=== PATIENT | female | born 1995 | race Caucasian/White ===

== ENCOUNTER → 2017-09-18 | Outpatient (CLI) | payer BC ==
[~2017-09-18] MED LIST: ATOM60CA4 PO; AZIT-1 PO; CEPH500C24 PO; CODE118S5 PO; CYCL10TA29 PO; ESTR0.5T16 PO; IBUP800T37 PO; OXYC-865 PO
[2017-09-18 13:14] LABS: PLATELET COUNT, AUTOMATED 246 K/uL (150-450)
--- NOTE | 2017-09-18 14:49 | EKG ---
FACILITY: [facility] [place] PATIENT NAME: DANIELA COSTA : [id number] MR: [id number] V: [id number] EXAM DATE: ORDERING PHYSICIAN: CASA WYMAN TECHNOLOGIST: YOKO Proctor Reason : PALPITATIONS Blood Pressure : / mmHG Vent. Rate : 073 BPM Atrial Rate : 073 BPM P-R Int : 134 ms QRS Dur : 078 ms QT Int : 368 ms P-R-T Axes : 010 071 033 degrees QTc Int : 405 ms Sinus arrhythmia No acute appearing findings No previous ECGs available Confirmed by JENNA HERNANDEZ ([id number]) on 09/19/2017 3:42:28 PM Referred By: GARO Confirmed By:JENNA HERNANDEZ
== END ==
LOC: RESP 12:55
PROVIDERS: ATTEND Nurse Practitioner Family
DX: R00.2 Palpitations (principal)
CPT/HCPCS: 36415; 82040; 82247; 82310; 82374; 82435; 82565; 82947; 84075; 84132; 84155; 84295; 84443; 84450; 84460; 84520; 85025; 93005; 93225

== ENCOUNTER → 2017-10-03 | Outpatient (CLI) | payer BC | LOC: LAB 10:10 | PROVIDERS: ATTEND Nurse Practitioner Family | DX: R94.6 Abnormal results of thyroid function studies (principal); R00.2 Palpitations | CPT/HCPCS: 36415; 84439; 84443; 84481 ==

== ENCOUNTER 2018-10-20 10:13 | Emergency (ER) | payer BC ==
[2018-10-20] MEDS ORDERED: NS(*) 0.9% 1000 ML BAG 1,000 ML IV ONE (10:25)
[2018-10-20] MEDS ORDERED: ONDANSETRON 4 MG/2 ML VIAL IVP ONE (10:25)
--- NOTE | 2018-10-20 10:25 | ER Report ---
History and Physical Time Seen By MD: 10:25 Hx. of Stated Complaint: binge drinking last night, cant keep fluid down, vomiting, chest pain, sore throat, headache, does not remember last night HPI/ROS CHIEF COMPLAINT: Vomiting HISTORY OF PRESENT ILLNESS: Patient is a 23-year-old female who was out drinking last evening. She states that he drank several shots of vodka. She has a period where she blacked out last evening. She denies any recollection of the head injury. She's been complaining of sore throat along with multiple episodes of vomiting and is feeling rundown since. He denies any significant past medical h istory. She denies or REVIEW OF SYSTEMS: Constitutional: No fever, no chills. Eyes: No discharge. ENT: No sore throat. Cardiovascular: No chest pain, no palpitations. Respiratory: No cough, no shortness of breath. Gastrointestinal: Epigastric abdominal pain nausea and vomiting Genitourinary: No hematuria. Musculoskeletal: No back pain. Skin: No rashes. Neurological: No headache. Allergies: Coded Allergies: Sulfa (Sulfonamide Antibiotics) (Verified Allergy, Intermediate, swelling to face eye gtts, 05/24/16) Home Meds Active Scripts Ondansetron Hcl (ZOFRAN) 4 Mg Tablet, 4 MG PO Q8H for Nausea, #15 TAB 0 Refills Prov:SERINA GIBSON MD 10/20/18 Amoxicillin 500 Mg Tab (AMOXICILLIN 500 MG TAB) 500 Mg Tablet, 2 TAB PO Q12H, #40 TAB 0 Refills TAKE TWO TABLETS BY MOUTH EVERY 12 HOURS Prov:SERINA GIBSON MD 10/20/18 Reported Medications Atomoxetine Hcl (STRATTERA) 60 Mg Capsule, 1 TAB PO DAILY, #30 07/05/16 Discontinued Reported Medications Estradiol (ESTRADIOL) 0.5 Mg Tablet, 1 TAB PO DAILY, #30 07/05/16 Discontinued Scripts Cephalexin Monohydrate (CEPHALEXIN) 500 Mg Cap, 500 MG PO Q6H for infection, #20 CAP TAKE 1 CAPSULE BY MOUTH tid Prov:ALINA GARCIA DO 02/25/17 Oxycodone Hcl/Acetaminophen (PERCOCET 5-325 MG TABLET) 1 Each Tablet, 1 EACH PO Q4-6H PRN for PAIN, #12 Prov:ALINA GARCIA DO 02/25/17 Azithromycin (ZITHROMAX) 250 Mg Tablet, 1 TAB PO QDAY, #6 TAB 500mg(2tabs) today then one pill once a day for 4 more days. Prov:SOURAV THOMPSON V DO 07/05/16 Codeine/Promethazine Hcl (PROMETHAZINE-CODEINE SYRUP) 5 Ml Syrup, 10 ML PO Q6-8H PRN for COUGH, #120 ML Prov:SOURAV THOMPSON V DO 07/05/16 Past Medical/Surgical History Noncontributory towards chief complaint Smoking Status: Never Smoker Hx Substance Use Disorder: No Hx Alcohol Use: Yes (almost weekly (socially in college)) Constitutional Vital Sign - Last 24 Hours 10/20/18 10/20/18 10/20/18 10/20/18 10:13 10:19 10:20 10:28 Temp 98.0 Pulse ??? 107 108 Resp 18 B/P (MAP) 120/76 120/76 (91) Pulse Ox 92 93 O2 Delivery Room Air 10/20/18 10/20/18 10/20/18 10/20/18 10:30 10:43 10:58 11:00 Pulse 96 101 B/P (MAP) 106/79 (88) 94/64 (74) Pulse Ox 95 97 10/20/18 10/20/18 10/20/18 11:13 11:28 11:30 Pulse 102 107 B/P (MAP) 112/76 (88) Pulse Ox 96 94 Physical Exam General/Constitutional: Patient is awake, alert, nontoxic and in no acute respiratory distress. Head: Normocephalic and atraumatic. Eyes: Conjunctival clear, Ears:External canals are clear. Tympanic membranes are clear with normal landmarks and light reflex. Nares: No rhinorrhea or bleeding. Turbinates are pink and moist. Oropharyngeal: Mucous membranes are moist. There there is pharyngeal erythema. There are no palatal petechiae. Uvula is midline and symmetrical. Neck: Supple, no adenopathy. Cardiovascular: Heart is regular rate and rhythm without audible murmurs, rubs or gallops. Pulmonary: Lungs are clear to auscultation bilaterally. There are no wheezes, rales, or rhonchi. Chest rise is symmetrical Abdomen: Soft, nontender, no guarding or peritoneal signs. Extremities: No gross deformities, No peripheral cyanosis. Able to move all 4 extremities. Neuro: Alert and oriented X3, Skin: No rashes, skin is warm dry and well perfused. Medical Decision Making Data Points Result Diagram: 10/20/18 1032 10/20/18 1040 Laboratory Hematology Test 10/20/18 10:17 10/20/18 10:32 10/20/18 10:40 Urine Color Yellow Urine Clarity Clear Urine pH 5.0 pH (4.8-9.5) Urine Specific [place] 1.023 Urine Protein Negative mg/dL (NEGATIVE) Urine Glucose (UA) Negative mg/dL (NEGATIVE) Urine Ketones Negative mg/dL (NEGATIVE) Urine Blood Negative (NEGATIVE) Urine Nitrite Negative (NEGATIVE) Urine Bilirubin Negative (NEGATIVE) Urine Urobilinogen Negative mg/dL (0.2-1.9) Urine Leukocyte Esterase Negative (NEGATIVE) Urine RBC None /HPF (0-2/HPF) Urine WBC 6 /HPF (0-5/HPF) Urine Squamous Epithelial Cells Many /LPF (</=FEW) Urine Bacteria Negative /HPF (NONE-FEW) Urine Hyaline Casts Few /LPF (NONE-FEW) Urine Mucus Few /HPF (NONE-FEW) Red Blood Count 4.90 M/uL (4.17-5.56) Mean Corpuscular Volume 93.4 fL (80.0-96.0) Mean Corpuscular Hemoglobin 31.5 pg (26.0-33.0) Mean Corpuscular Hemoglobin Concent 33.7 g/dL (32.0-36.0) Red Cell Distribution Width 13.8 % (11.5-14.5) Mean Platelet Volume 8.1 fL (7.2-11.1) Neutrophils (%) (Auto) 88.0 % (39.4-72.5) Lymphocytes (%) (Auto) 6.8 % (17.6-49.6) Monocytes (%) (Auto) 4.9 % (4.1-12.4) Eosinophils (%) (Auto) 0.1 % (0.4-6.7) Basophils (%) (Auto) 0.2 % (0.3-1.4) Nucleated RBC Relative Count (auto) 0.1 /100WBC Neutrophils # (Auto) 15.3 K/uL (2.0-7.4) Lymphocytes # (Auto) 1.2 K/uL (1.3-3.6) Monocytes # (Auto) 0.8 K/uL (0.3-1.0) Eosinophils # (Auto) 0.0 K/uL (0.0-0.5) Basophils # (Auto) 0.0 K/uL (0.0-0.1) Nucleated RBC Absolute Count (auto) 0.01 K/uL Sodium Level 145 mmol/L (137-145) Potassium Level 3.7 mmol/L (3.5-5.0) Chloride Level 111 mmol/L (98-107) Carbon Dioxide Level 21 mmol/L (22-31) Blood Urea Nitrogen 8 mg/dl (7-18) Creatinine 0.70 mg/dl (0.52-1.04) Glomerular Filtration Rate Calc > 60.0 Random Glucose 108 mg/dl (75-110) Calcium Level 9.1 mg/dl (8.4-10.2) Total Bilirubin 0.6 mg/dl (0.2-1.3) Aspartate Amino Transf (AST/SGOT) 19 U/L (0-35) Alanine Aminotransferase (ALT/SGPT) 35 U/L (0-56) Alkaline Phosphatase 94 U/L (0-126) Total Protein 7.2 g/dl (6.3-8.2) Albumin 4.8 g/dl (3.5-5.0) Lipase 27 U/L (23-300) Human Chorionic Gonadotropin, Qual Negative (NEGATIVE) Helicobacter pylori IgG Antibody Negative (NEGATIVE) Influenza Virus Type A (PCR) Negative (NEGATIVE) Influenza Virus Type B (PCR) Negative (NEGATIVE) Group A Streptococcus (PCR) Positive (NEGATIVE) Chemistry Test 10/20/18 10:17 10/20/18 10:32 10/20/18 10:40 Urine Color Yellow Urine Clarity Clear Urine pH 5.0 pH (4.8-9.5) Urine Specific [place] 1.023 Urine Protein Negative mg/dL (NEGATIVE) Urine Glucose (UA) Negative mg/dL (NEGATIVE) Urine Ketones Negative mg/dL (NEGATIVE) Urine Blood Negative (NEGATIVE) Urine Nitrite Negative (NEGATIVE) Urine Bilirubin Negative (NEGATIVE) Urine Urobilinogen Negative mg/dL (0.2-1.9) Urine Leukocyte Esterase Negative (NEGATIVE) Urine RBC None /HPF (0-2/HPF) Urine WBC 6 /HPF (0-5/HPF) Urine Squamous Epithelial Cells Many /LPF (</=FEW) Urine Bacteria Negative /HPF (NONE-FEW) Urine Hyaline Casts Few /LPF (NONE-FEW) Urine Mucus Few /HPF (NONE-FEW) White Blood Count 17.4 k/uL (4.5-11.0) Red Blood Count 4.90 M/uL (4.17-5.56) Hemoglobin 15.4 g/dL (12.0-16.0) Hematocrit 45.8 % (34.0-47.0) Mean Corpuscular Volume 93.4 fL (80.0-96.0) Mean Corpuscular Hemoglobin 31.5 pg (26.0-33.0) Mean Corpuscular Hemoglobin Concent 33.7 g/dL (32.0-36.0) Red Cell Distribution Width 13.8 % (11.5-14.5) Platelet Count 266 K/uL (150-450) Mean Platelet Volume 8.1 fL (7.2-11.1) Neutrophils (%) (Auto) 88.0 % (39.4-72.5) Lymphocytes (%) (Auto) 6.8 % (17.6-49.6) Monocytes (%) (Auto) 4.9 % (4.1-12.4) Eosinophils (%) (Auto) 0.1 % (0.4-6.7) Basophils (%) (Auto) 0.2 % (0.3-1.4) Nucleated RBC Relative Count (auto) 0.1 /100WBC Neutrophils # (Auto) 15.3 K/uL (2.0-7.4) Lymphocytes # (Auto) 1.2 K/uL (1.3-3.6) Monocytes # (Auto) 0.8 K/uL (0.3-1.0) Eosinophils # (Auto) 0.0 K/uL (0.0-0.5) Basophils # (Auto) 0.0 K/uL (0.0-0.1) Nucleated RBC Absolute Count (auto) 0.01 K/uL Glomerular Filtration Rate Calc > 60.0 Calcium Level 9.1 mg/dl (8.4-10.2) Total Bilirubin 0.6 mg/dl (0.2-1.3) Aspartate Amino Transf (AST/SGOT) 19 U/L (0-35) Alanine Aminotransferase (ALT/SGPT) 35 U/L (0-56) Alkaline Phosphatase 94 U/L (0-126) Total Protein 7.2 g/dl (6.3-8.2) Albumin 4.8 g/dl (3.5-5.0) Lipase 27 U/L (23-300) Human Chorionic Gonadotropin, Qual Negative (NEGATIVE) Helicobacter pylori IgG Antibody Negative (NEGATIVE) Influenza Virus Type A (PCR) Negative (NEGATIVE) Influenza Virus Type B (PCR) Negative (NEGATIVE) Group A Streptococcus (PCR) Positive (NEGATIVE) Urinalysis Test 10/20/18 10:17 Urine Color Yellow Urine Clarity Clear Urine pH 5.0 pH (4.8-9.5) Urine Specific [place] 1.023 Urine Protein Negative mg/dL (NEGATIVE) Urine Glucose (UA) Negative mg/dL (NEGATIVE) Urine Ketones Negative mg/dL (NEGATIVE) Urine Blood Negative (NEGATIVE) Urine Nitrite Negative (NEGATIVE) Urine Bilirubin Negative (NEGATIVE) Urine Urobilinogen Negative mg/dL (0.2-1.9) Urine Leukocyte Esterase Negative (NEGATIVE) Urine RBC None /HPF (0-2/HPF) Urine WBC 6 /HPF (0-5/HPF) Urine Squamous Epithelial Cells Many /LPF (</=FEW) Urine Bacteria Negative /HPF (NONE-FEW) Urine Hyaline Casts Few /LPF (NONE-FEW) Urine Mucus Few /HPF (NONE-FEW) ED Course/Re-evaluation ED Course 10/20/2018 10:39:13 am patient is a 23-year-old female who drinks significant amount of vodka last evening did have a blackout currently mental status is normal. She is complaining of severe throat pain along with epigastric abdominal pain. We'll check blood work will check CBC CMP lipase test. We will give IV fluids and Zofran along with Pepcid. 10/20/2018 11:19:05 am patient has positive for group A strep remaining labs otherwise unremarkable. We'll give IV Rocephin and discharged home. Decision to Disposition Date: Oct 20, 2018 Decision to Disposition Time: 13:48 Depart Departure Latest Vital Signs Vital Signs Date Time Temp Pulse Resp B/P (MAP) Pulse Ox O2 Delivery O2 Flow Rate FiO2 10/20/18 11:30 112/76 (88) 10/20/18 11:28 107 94 10/20/18 10:19 98.0 18 Room Air Impression: Primary Impression: Strep throat Condition: Improved Disposition: HOME OR SELF-CARE New Scripts Ondansetron Hcl (ZOFRAN) 4 Mg Tablet 4 MG PO Q8H for Nausea, #15 TAB 0 Refills Prov: SERINA GIBSON MD 10/20/18 Amoxicillin 500 Mg Tab (AMOXICILLIN 500 MG TAB) 500 Mg Tablet 2 TAB PO Q12H, #40 TAB 0 Refills TAKE TWO TABLETS BY MOUTH EVERY 12 HOURS Prov: SERINA GIBSON MD 10/20/18 Patient Instructions: Strep Throat (ED) SERINA GIBSON MD Oct 20, 2018 10:25
[2018-10-20] MEDS ORDERED: FAMOTIDINE(*) 20MG/50ML PREMIX 50 ML IVPB ONE (10:45)
[2018-10-20 10:49] LABS: PLATELET COUNT, AUTOMATED 266 K/uL (150-450)
[2018-10-20] MEDS ORDERED: cefTRIAXone 1 GM VIAL IVP ONE (11:20)
[2018-10-20] MEDS ORDERED: ONDA4TAB97 PO (11:21)
[2018-10-20] MEDS ORDERED: AMOX500T10 PO (11:21)
[2018-10-20 11:30] VITALS: BP 112/76
== END 2018-10-20 11:55 | disposition home or self-care (01) ==
LOC: ER 10:32
DX: J02.0 Streptococcal pharyngitis (principal)
CPT/HCPCS: 81001; 83690; 84703; 85025; 86677; 87502; 87653; 96361; 96365; 96375; 99284; J0696; J2405; J3490; J7030; 82040; 82247; 82310; 82374; 82435; 82565; 82947; 84075; 84132; 84155; 84295; 84450; 84460; 84520

== ENCOUNTER 2018-10-29 06:00 | Emergency (ER) | payer BC ==
[~2018-10-29 06:00] MED LIST changes: +AMOX500T10 PO; +ONDA4TAB97 PO
--- NOTE | 2018-10-29 06:29 | ER Report ---
History and Physical Time Seen By MD: 06:26 Hx. of Stated Complaint: PT REPORTS FEVER SYMPTOMS THAT STARTED LAST NIGHT. HPI/ROS CHIEF COMPLAINT: ongoing fever, now with chills HISTORY OF PRESENT ILLNESS: This is a 23 year old female. She has been taking amoxicillin for strep for the last 9 days. Positive strep test. Very fatigued, no improvement. Still sore throat. Mild cough. No rashes. No abdominal pain, nausea or vomiting. Normal bowel and bladder. Mild headache. Allergies: Coded Allergies: Sulfa (Sulfonamide Antibiotics) (Verified Allergy, Intermediate, swelling to face eye gtts, 10/29/18) Home Meds Active Scripts Cephalexin (KEFLEX) 500 Mg Capsule, 500 MG PO Q6H, #28 CAP 0 Refills Prov:ABIGAIL GUTIERREZ MD 10/29/18 Ondansetron Hcl (ZOFRAN) 4 Mg Tablet, 4 MG PO Q8H for Nausea, #15 TAB 0 Refills Prov:SERINA GIBSON MD 10/20/18 Amoxicillin 500 Mg Tab (AMOXICILLIN 500 MG TAB) 500 Mg Tablet, 2 TAB PO Q12H, #40 TAB 0 Refills TAKE TWO TABLETS BY MOUTH EVERY 12 HOURS Prov:SERINA GIBSON MD 10/20/18 Reported Medications Atomoxetine Hcl (STRATTERA) 60 Mg Capsule, 1 TAB PO DAILY, #30 07/05/16 Reviewed Nurses Notes: Yes Smoking Status: Never Smoker Hx Substance Use Disorder: No Hx Alcohol Use: Yes (almost weekly (socially in college)) Constitutional Vital Sign - Last 24 Hours 10/29/18 10/29/18 10/29/18 10/29/18 06:00 06:04 06:06 06:15 Temp 99.7 Pulse ??? 107 104 Resp 16 B/P (MAP) 116/71 (86) 116/71 Pulse Ox 92 95 O2 Delivery Room Air 10/29/18 10/29/18 10/29/18 10/29/18 06:30 06:45 06:49 07:00 Pulse 106 110 105 B/P (MAP) 113/71 (85) 117/68 (84) Pulse Ox 96 95 94 10/29/18 07:15 Pulse 109 Pulse Ox 94 Physical Exam General Appearance: Alert, no acute distress. Eyes: Pupils are equal, round. No pallor, injection or icterus. ENT: Mucous membranes are moist. Normal oral mucosa. Posterior oropharynx with erythema, exudates and hypertrophy. Neck: Supple and minimal tenderness, with submandibular lymphadenopathy. Respiratory: Breathing easily and unlabored. Lungs are clear to auscultation. Cardiovascular: Regular rate and rhythm. No murmurs, gallops or rubs. Normal capillary refill. Gastrointestinal: Abdomen is soft and non tender. Nondistended. No masses or organomegaly. Normal active bowel sounds. No costovertebral angle tenderness with percussion. Neurological: Alert and oriented x3. Skin: Warm and dry. No rashes. DIFFERENTIAL DIAGNOSIS: After history and physical exam, differential diagnosis was considered for sore throat and fevers, unresponsive to the amoxicillin, possible mono, influenza or viral syndrome. Medical Decision Making Data Points Result Diagram: 10/29/18624 Laboratory Hematology Test 10/29/18 06:16 10/29/18 06:25 Influenza Virus Type A (PCR) Negative (NEGATIVE) Influenza Virus Type B (PCR) Negative (NEGATIVE) Red Blood Count 4.72 M/uL (4.17-5.56) Mean Corpuscular Volume 93.9 fL (80.0-96.0) Mean Corpuscular Hemoglobin 31.5 pg (26.0-33.0) Mean Corpuscular Hemoglobin Concent 33.6 g/dL (32.0-36.0) Red Cell Distribution Width 13.4 % (11.5-14.5) Mean Platelet Volume 7.8 fL (7.2-11.1) Neutrophils (%) (Auto) 89.2 % (39.4-72.5) Lymphocytes (%) (Auto) 4.7 % (17.6-49.6) Monocytes (%) (Auto) 5.7 % (4.1-12.4) Eosinophils (%) (Auto) 0.1 % (0.4-6.7) Basophils (%) (Auto) 0.3 % (0.3-1.4) Nucleated RBC Relative Count (auto) 0.0 /100WBC Neutrophils # (Auto) 11.5 K/uL (2.0-7.4) Lymphocytes # (Auto) 0.6 K/uL (1.3-3.6) Monocytes # (Auto) 0.7 K/uL (0.3-1.0) Eosinophils # (Auto) 0.0 K/uL (0.0-0.5) Basophils # (Auto) 0.0 K/uL (0.0-0.1) Nucleated RBC Absolute Count (auto) 0.00 K/uL Monoscreen Negative (NEGATIVE) Chemistry Test 10/29/18 06:16 10/29/18 06:25 Influenza Virus Type A (PCR) Negative (NEGATIVE) Influenza Virus Type B (PCR) Negative (NEGATIVE) White Blood Count 12.9 k/uL (4.5-11.0) Red Blood Count 4.72 M/uL (4.17-5.56) Hemoglobin 14.9 g/dL (12.0-16.0) Hematocrit 44.3 % (34.0-47.0) Mean Corpuscular Volume 93.9 fL (80.0-96.0) Mean Corpuscular Hemoglobin 31.5 pg (26.0-33.0) Mean Corpuscular Hemoglobin Concent 33.6 g/dL (32.0-36.0) Red Cell Distribution Width 13.4 % (11.5-14.5) Platelet Count 213 K/uL (150-450) Mean Platelet Volume 7.8 fL (7.2-11.1) Neutrophils (%) (Auto) 89.2 % (39.4-72.5) Lymphocytes (%) (Auto) 4.7 % (17.6-49.6) Monocytes (%) (Auto) 5.7 % (4.1-12.4) Eosinophils (%) (Auto) 0.1 % (0.4-6.7) Basophils (%) (Auto) 0.3 % (0.3-1.4) Nucleated RBC Relative Count (auto) 0.0 /100WBC Neutrophils # (Auto) 11.5 K/uL (2.0-7.4) Lymphocytes # (Auto) 0.6 K/uL (1.3-3.6) Monocytes # (Auto) 0.7 K/uL (0.3-1.0) Eosinophils # (Auto) 0.0 K/uL (0.0-0.5) Basophils # (Auto) 0.0 K/uL (0.0-0.1) Nucleated RBC Absolute Count (auto) 0.00 K/uL Monoscreen Negative (NEGATIVE) ED Course/Re-evaluation ED Course Negative mono and influenza. White count mildly elevated. Will start Keflex for strep treatment failure and have the patient see ENT. Decision to Disposition Date: Oct 29, 2018 Decision to Disposition Time: 07:08 Depart Departure Latest Vital Signs Vital Signs Date Time Temp Pulse Resp B/P (MAP) Pulse Ox O2 Delivery O2 Flow Rate FiO2 10/29/18 07:15 109 94 10/29/18 07:00 117/68 (84) 10/29/18 06:06 99.7 16 Room Air Impression: Primary Impression: Strep throat Condition: Improved Disposition: HOME OR SELF-CARE Referrals: RENE TOLLIVER JR, MD New Scripts Cephalexin (KEFLEX) 500 Mg Capsule 500 MG PO Q6H, #28 CAP 0 Refills Prov: ABIGAIL GUTIERREZ MD 10/29/18 Patient Instructions: Strep Throat (ED) Additional Instructions: Start Keflex 500mg 4 times a day for 7 days. Call and schedule an appointment to see ENT, Dr. Tolliver. You can keep using Ibuprofen or Tylenol as needed for pain. ABIGAIL GUTIERREZ MD Oct 29, 2018 06:29
[2018-10-29 06:32] LABS: PLATELET COUNT, AUTOMATED 213 K/uL (150-450)
[2018-10-29 07:00] VITALS: BP 117/68
[2018-10-29] MEDS ORDERED: CEPH-13 PO (07:15)
== END 2018-10-29 07:29 | disposition home or self-care (01) ==
LOC: ER 07:17
DX: J02.0 Streptococcal pharyngitis (principal)
CPT/HCPCS: 36415; 85025; 86308; 87502; 99282

== ENCOUNTER → 2018-10-30 | Outpatient (CLI) | payer BC ==
[~2018-10-30] MED LIST changes: +CEPH-13 PO
== END ==
LOC: US 07:17
PROVIDERS: ATTEND Internal Medicine Clinical Cardiac Electrophysiology
DX: R00.2 Palpitations (principal)
CPT/HCPCS: 93306